=== PATIENT | male | born 1975 | race Caucasian/White ===

== ENCOUNTER 2018-06-23 21:57 | Emergency (ER) | payer OTHER ==
[2018-06-23 22:56] VITALS: BP 139/83; PULSE 75; TEMP 97.8; BMI 24.2
--- NOTE | 2018-06-23 23:54 | PDOC ---
History of Present Illness - General Chief Complaint: Edema Stated Complaint: LEFT LEG AND FOOT PAIN Time Seen by Provider: 06/23/18 23:20 History Source: Patient Exam Limitations: No Limitations - History of Present Illness Initial Comments: 06/23/18 23:50 42 yo M with hx of psoriasis (not on medications) presents to the emergency department with left ankle swelling and pain since 9pm. Per the patient, he states after standing at his job for 11 hours, he noticed swelling in his left ankle when arriving home. The pain is located in the medial malleolus on the inferior and posterior aspect that is 6/10 throbbing sensation without radiation. Had a previous episode approximately 1 year ago with resolution on its own. Denies trauma. Denies the following: fever, chills, nausea, vomiting, chest pain, SOB, recent travels, hx of DVT/PE, use of hormones, recent surgeries , recent immobilizations, abdominal pain, dysuria, hematuria, diarrhea, and hematochezia. Past History - Past Medical History Allergies/Adverse Reactions: Allergies Allergy/AdvReac Type Severity Reaction Status Date / Time No Known Allergies Allergy Verified 06/24/18 00:52 Home Medications: Ambulatory Orders NK [No Known Home Medication] 06/23/18 - Suicide/Smoking/Psychosocial Hx Smoking History: Never smoked Review of Systems - Review of Systems Able to Perform ROS?: Yes Is the patient limited French proficient: No Constitutional: No: Chills, Diaphoresis, Fever, Weakness HEENTM: No: Eye Pain, Recent change in vision, Ear Pain, Nose Pain, Throat Pain , Mouth Pain Respiratory: No: Cough, Shortness of Breath, Hemoptysis Cardiac (ROS): No: Chest Pain, Lightheadedness, Palpitations, Syncope, Chest Tightness ABD/GI: No: Constipated, Diarrhea, Difficulty Swallowing, Nausea, Poor Appetite , Poor Fluid Intake, Rectal Bleeding, Vomiting, Indigestion, Abdominal cramping , Tarry Stools : No: Burning, Dysuria, Hematuria, Urgency Musculoskeletal: Yes: Joint Swelling (ankle left). No: Back Pain, Neck Pain Integumentary: No: Bruising, Flushing, Lesions, Lumps, Rash Neurological: No: Headache, Numbness, Tingling, Tremors, Ataxia, Dizziness Psychiatric: No: Stressors Endocrine: No: Unexplained Weight Gain Hematologic/Lymphatic: No: Anemia *Physical Exam - Vital Signs Last Vital Signs Temp Pulse Resp BP Pulse Ox 97.8 F 75 19 139/83 97 06/23/18 22:53 06/23/18 22:53 06/23/18 22:53 06/23/18 22:53 06/23/18 22:53 - Physical Exam General Appearance: Yes: Nourished, Appropriately Dressed. No: Apparent Distress, Intoxicated HEENT: positive: EOMI, DEBORAH, Normal Voice, Symmetrical, Hearing Grossly Normal. negative: Pharynx Normal, Pale Conjunctivae, Scleral Icterus (R), Scleral Icterus (L), Muffled/Hoarse voice, Pharyngeal Erythema, Tonsillar Exudate, Tonsillar Erythema, Nasal Congestion, Sinus Tenderness, Excessive drooling Neck: positive: Tender. negative: Trachea midline, Lymphadenopathy (R), Lymphadenopathy (L), Tender lateral, Tender midline Respiratory/Chest: positive: Lungs Clear, Normal Breath Sounds. negative: Chest Tender, Respiratory Distress, Accessory Muscle Use, Crackles, Rales, Rhonchi, Stridor, Wheezing, Hyperresonant Cardiovascular: positive: Regular Rhythm, Regular Rate, S1, S2. negative: Systolic Murmur Gastrointestinal/Abdominal: positive: Normal Bowel Sounds, Flat, Soft. negative : Tender, Distended, Rebound Lymphatic: negative: Adenopathy Musculoskeletal: positive: Normal Inspection. negative: CVA Tenderness, Vertebral Tenderness Extremity: positive: Normal Capillary Refill, Normal Range of Motion, Tender ( medial malleolus left posterior and inferior ttp), Pedal Edema (left). 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 negative: EOM Palsy, Sensory Deficit Moderate Sedation - Procedure Monitoring Vital Signs: Procedure Monitoring Vital Signs Temperature 97.8 F 06/23/18 22:53 Pulse Rate 75 06/23/18 22:53 Respiratory Rate 19 06/23/18 22:53 Blood Pressure 139/83 06/23/18 22:53 O2 Sat by Pulse Oximetry (%) 97 06/23/18 22:53 Medical Decision Making - Medical Decision Making 42 yo M with hx of psoriasis (not on medications) presents to the emergency department with left ankle swelling and pain since 9pm. initial vitals Initial Vital Signs Temp Pulse Resp BP Pulse Ox 97.8 F 75 19 139/83 97 06/23/18 22:53 06/23/18 22:53 06/23/18 22:53 06/23/18 22:53 06/23/18 22:53 Work up: likely this is related to possible varicose veins due to presence of varicose veins on the legs bilaterally without signs of trauma (no ecchymosis along the malleolus). likely not fracture or dislocation. unlikely to be a dvt given no erythema, not warm to the touch, and no risk factors. will get xray to rule out fx and dislocation xray did not show fracture or dislocation. will discharge with vascular follow up Dispo: Discharge *DC/Admit/Observation/Transfer Diagnosis at time of Disposition: Ankle pain Qualifiers: Chronicity: unspecified Laterality: left Qualified Code(s): M25.572 - Pain in left ankle and joints of left foot - Discharge Dispostion Disposition: HOME Decision to Admit order: No - Referrals Referrals: Reg Campos MD [Staff Physician] - - Patient Instructions Printed Discharge Instructions: DI for Varicose Veins, DI for Ankle Pain Additional Instructions: you were seen for ankle pain. xray was negative for fractures and dislocations. please follow up with the vascular surgeon referred to you for follow up care and management. please return to the emergency department if you are unable to walk on your foot or have new concerning symptoms such as fevers/chills with increased leg pain and swelling, inability to move your foot, and progression of a rash from the foot up the leg. thank you. - Post Discharge Activity Forms/Work/School Notes: Back to Work
--- NOTE | 2018-06-24 00:03 | PDOC ---
Attending Attestation - HPI HPI: 06/24/18 00:05 The patient is a 42 year old male, with a significant PMH of psoriasis, who presents to the emergency department with 3 hours of left ankle pain and swelling. The patient states the left ankle pain is rated 6/10 in intensity. The patient states he works at a [employer] where he stands for approx 11 hours during the day. The patient states he noted the left ankle swelling and pain after arriving home from work. Denies any recent injuries or trauma. The patient states he had a similar episode of left ankle pain and swelling 1 year ago which resolved on its own. The patient denies chest pain, shortness of breath, headache and dizziness. Denies fever, chills, nausea, vomit, diarrhea and constipation. Denies dysuria, frequency, urgency and hematuria. Documentation prepared by Edvin Dubon, acting as medical sales consultant for Ibeth Luna MD. <Edvin Dubon - Last Filed: 06/24/18 00:05> - Resident Resident Name: Andrae Bowser - ED Attending Attestation I have performed the following: I have examined & evaluated the patient, The case was reviewed & discussed with the resident, I agree w/resident's findings & plan, Exceptions are as noted - Physicial Exam PE: GENERAL: Awake, alert, and fully oriented, in no acute distress HEAD: No signs of trauma EYES: PERRLA, EOMI, sclera anicteric, conjunctiva clear ENT: Auricles normal inspection, hearing grossly normal, nares patent, oropharynx clear without exudates. Moist mucosa NECK: Normal ROM, supple, no lymphadenopathy, JVD, or masses LUNGS: Breath sounds equal, clear to auscultation bilaterally. No wheezes, and no crackles HEART: Regular rate and rhythm, normal S1 and S2, no murmurs, rubs or gallops ABDOMEN: Soft, nontender, normoactive bowel sounds. No guarding, no rebound. No masses EXTREMITIES: Normal range of motion. +Purple discoloration just posterior to the medial malleolus. Multiple varicosities, worse to L leg, but present B/L. No clubbing or cyanosis. No cords, erythema, or tenderness NEUROLOGICAL: Cranial nerves II through XII grossly intact. Normal speech. Motor and sensation intact. SKIN: Warm, Dry, normal turgor, no rashes or lesions noted. - Medical Decision Making Pt with swelling to L ankle. No signs of cellulitis. The pain may be due to sprain/overuse injury, as he is on his feet all day at work, or this may be due to poor circulation, in light of varicose veins. Will obtain XR. If wnl, will DC home with vascular f/u. <Ibeth Luna - Last Filed: 06/24/18 00:19>
[2018-06-24] MEDS ORDERED: IBUPROFEN 600 MG TABLET (FP) PO ONE (00:09)
== END 2018-06-24 01:26 | disposition home or self-care (01) ==
LOC: JER 21:57
DX: M25.572 Pain in left ankle and joints of left foot (principal); X50.1XXA Overexertion from prolonged static or awkward postures, initial encounter; Y93.79 Activity, other specified sports and athletics; Y92.511 Restaurant or cafe as the place of occurrence of the external cause; Y99.0 Civilian activity done for income or pay
CPT/HCPCS: 73610-TC-LT-FY; 73630-TC-LT; 99281-25

== ENCOUNTER 2024-10-03 06:57 | Observation (INO) | payer OTHER ==
[2024-10-03] MEDS: cefOXitin SODIUM 2 GM VIAL (RESTRICTED TO ID) IVPB ONE
[2024-10-03 07:03] VITALS: BMI 28.2
[2024-10-03] MEDS ORDERED: ONDANSETRON 4 MG/2 ML VIAL ONE ×2 (07:39→14:06)
[2024-10-03] MEDS ORDERED: ACETAMINOPHEN INJECTION 100 ML ONE (07:39)
[2024-10-03] MEDS ORDERED: FAMOTIDINE 20 MG/50 ML IVPB 20 MG/50 ML MG IVPB ONE (07:39)
[2024-10-03 08:09] LABS: ABSOLUTE IMMATURE GRANULOCYTES 0.04 x10^3/uL (0.0-0.031); BASOPHILS # 0.04 x10^3/uL (0.01-0.08); EOSINOPHIL % 0.3 % (0.8-7.0); EOSINOPHILS # 0.03 x10^3/uL (0.04-0.54); EPI CELLS 5 /uL (0-25.1); HEMATOCRIT 46.6 % (40.1-51.0); HEMOGLOBIN 14.8 g/dL (13.7-17.5); HYALINE CASTS 0 /uL (0-3.1); MCHC 31.8 g/dl (32.3-36.5); MEAN CELL VOLUME 80.6 fl (79.0-92.2); MEAN PLT VOLUME 9.6 fl (9.4-12.4); MONOCYTE # 0.33 x10^3/uL (0.30-0.82); MONOCYTE % 2.8 % (5.3-12.2); PH,URINE 5.5 (5.0-8.0); PLATELET COUNT 463 x10^3/uL (163-337); RDW 14.8 % (12.1-15.9); URINE APPEARANCE CLEAR; URINE BACTERIA 6 /uL (0-1359); URINE BILIRUBIN NEGATIVE (NEGATIVE); URINE COLOR YELLOW; URINE GLUCOSE (UA) NEGATIVE (NEGATIVE); URINE KETONE NEGATIVE (NEGATIVE); URINE LEUK ESTERASE NEGATIVE (NEGATIVE); URINE NITRITE NEGATIVE (NEGATIVE); URINE PROTEIN TRACE (NEGATIVE); URINE RBC 29 /uL (0-23.9); URINE UROBILINOGEN 0.2 mg/dL (0.2-1.0); URINE WBC 4 /uL (0-25.8)
[2024-10-03] MEDS: SODIUM CHLORIDE 1,000 ML IV STA (08:10)
[2024-10-03] MEDS: ACETAMINOPHEN 1000 MG/100 ML BAG IVPB ONE (08:10)
[2024-10-03] MEDS: ONDANSETRON 4 MG/2 ML VIAL IVPUSH ONE (08:10)
[2024-10-03] MEDS: FAMOTIDINE 20 MG/50 ML IVPB 20 MG/50 ML MG IVPB ONE (08:10)
[2024-10-03 08:16] LABS: INR 1.05 (0.83-1.09); PROTHROMBIN TIME (PATIENT) 11.5 SEC (9.7-13.0)
[2024-10-03 08:19] LABS: ACTIVATED PTT 31.8 SECONDS (25.2-36.5)
[2024-10-03 08:32] LABS: POTASSIUM 4.8 mmol/L (3.5-5.1)
[2024-10-03 08:34] LABS: ALBUMIN 3.9 g/dl (3.4-5.0); BLOOD UREA NITROGEN 16.2 mg/dL (7-18); CALCIUM 8.9 mg/dL (8.5-10.1)
[2024-10-03 08:37] LABS: CREATININE 0.8 mg/dL (0.55-1.3)
[2024-10-03 08:39] LABS: BILIRUBIN,TOTAL 0.8 mg/dL (0.2-1)
[2024-10-03] MEDS ORDERED: KETOROLAC TROMETHAMINE 30 MG/1 ML VIAL ONE ×2 (09:22→14:06)
[2024-10-03] MEDS: KETOROLAC TROMETHAMINE 30 MG/1 ML VIAL IVPUSH ONE (09:26)
[2024-10-03] MEDS ORDERED: PIPERACILLIN/TAZOB 3.375 GM 3.375 GM/50 ML BAG IVPB ONE (09:31)
[2024-10-03] MEDS: PIPERACILLIN/TAZOB 3.375 GM 3.375 GM in DEXTROSE 5%-WATER - 50 ML IVPB ONE (09:41)
[2024-10-03] MEDS ORDERED: BUPIVACAINE HCL/PF 0.25% (2.5MG/ML) 10 ML VIAL ONE ×2 (13:20→13:23)
[2024-10-03] MEDS ORDERED: cefOXitin SODIUM 2 GM VIAL (RESTRICTED TO ID) IVPB ONE (13:23)
[2024-10-03] MEDS ORDERED: HEPARIN NA (PORCINE) 5,000 UNITS/ML 1ML VIAL ONE (13:23)
[2024-10-03] MEDS ORDERED: INDOCYANINE GREEN 25 MG/10 ML VIAL IVPUSH ONE (13:23)
[2024-10-03] MEDS ORDERED: MIDAZOLAM HCL 2 MG/2 ML SINGLE DOSE VIAL ONE (14:05)
[2024-10-03] MEDS ORDERED: PROPOFOL 20 ML ONE (14:05)
[2024-10-03] MEDS ORDERED: SUCCINYLCHOLINE CHLORIDE 200 MG/10 ML SYRINGE ONE (14:05)
[2024-10-03] MEDS ORDERED: LIDOCAINE HCL/PF 2% SDV 5ML VIAL ONE (14:06)
[2024-10-03] MEDS ORDERED: METOCLOPRAMIDE HCL INJECTION 10 MG/2 ML VIAL ONE (14:06)
[2024-10-03] MEDS ORDERED: DEXAMETHASONE SOD PHOSPHATE 4 MG/1 ML VIAL ONE (14:06)
[2024-10-03] MEDS: BUPIVACAINE HCL/PF 0.25% (2.5MG/ML) 10 ML VIAL IJ ONE ×2 (15:47)
[2024-10-03] MEDS ORDERED: PIPERACILLIN/TAZOBACTAM 3.375 GM VIAL IVPB ONE (16:04)
[2024-10-03] MEDS: PIPERACILLIN/TAZOBACTAM 3.375 GM VIAL IVPB ONE (16:07)
[2024-10-03] MEDS ORDERED: SUGAMMADEX SODIUM 200 MG/2 ML VIAL ONE (16:32)
[2024-10-03] MEDS ORDERED: oxyCODONE HCL 5 MG TABLET PO PRN (20:04)
[2024-10-03] MEDS: LACTATED RINGERS SOLUTION 1,000 ML IV SCH (21:53)
[2024-10-03] MEDS: DOCUSATE SODIUM 100 MG CAPSULE (FP) PO SCH (21:54)
[2024-10-04] MEDS: LACTATED RINGERS SOLUTION 1,000 ML IV SCH (00:45)
[2024-10-04] MEDS: PIPERACILLIN/TAZOB 3.375 GM 3.375 GM/50 ML BAG IVPB SCH (00:49)
[2024-10-04] MEDS: ACETAMINOPHEN 1000 MG/100 ML BAG IVPB SCH (00:49)
[2024-10-04 04:24] VITALS: RESP 18
[2024-10-04 09:45] LABS: ABSOLUTE IMMATURE GRANULOCYTES 0.04 x10^3/uL (0.0-0.031); BASOPHILS # 0.03 x10^3/uL (0.01-0.08); EOSINOPHIL % 1.1 % (0.8-7.0); EOSINOPHILS # 0.11 x10^3/uL (0.04-0.54); HEMATOCRIT 40.4 % (40.1-51.0); HEMOGLOBIN 12.7 g/dL (13.7-17.5); MCHC 31.4 g/dl (32.3-36.5); MEAN CELL VOLUME 79.8 fl (79.0-92.2); MEAN PLT VOLUME 9.8 fl (9.4-12.4); MONOCYTE # 0.93 x10^3/uL (0.30-0.82); MONOCYTE % 9.5 % (5.3-12.2); PLATELET COUNT 385 x10^3/uL (163-337); RDW 15.1 % (12.1-15.9)
[2024-10-04 10:08] LABS: POTASSIUM 3.9 mmol/L (3.5-5.1)
[2024-10-04 10:12] LABS: BLOOD UREA NITROGEN 10.7 mg/dL (7-18)
[2024-10-04 10:15] LABS: CREATININE 0.8 mg/dL (0.55-1.3); PHOSPHOROUS 2.9 mg/dL (2.5-4.9)
[2024-10-04 10:17] LABS: BILIRUBIN,TOTAL 1.1 mg/dL (0.2-1); TOT PROT 6.1 g/dl (6.4-8.2)
[2024-10-04 10:23] LABS: CALCIUM 8.4 mg/dL (8.5-10.1)
[2024-10-04] MEDS: ENOXAPARIN NA (PORCINE) 40 MG/0.4 ML DISP.SYRIN SQ SCH (10:31)
[2024-10-04] MEDS: oxyCODONE HCL 5 MG TABLET PO PRN (11:15)
[2024-10-04 11:37] VITALS: BP 122/81; PULSE 78; TEMP 98.1
== END 2024-10-04 13:39 | disposition home or self-care (01) ==
LOC: JER 06:57 → JASUSAT 09:22 → SUATTDRO 09:22 → J8W 10:26 → JASUSAT 10:26 → J8W 10-04 07:23
PROVIDERS: ADMIT Student in an Organized Health Care Education/Training Program; ATTEND Internal Medicine
PROC: 0FT44ZZ Resection of Gallbladder, Percutaneous Endoscopic Approach (ICD-10-PCS; principal; 2024-10-03 10:30)
PROC: 3E033NZ Introduction of Analgesics, Hypnotics, Sedatives into Peripheral Vein, Percutaneous Approach (ICD-10-PCS; 2024-10-04)
PROC: 3E033GC Introduction of Other Therapeutic Substance into Peripheral Vein, Percutaneous Approach (ICD-10-PCS; 2024-10-04)
PROC: 3E0333Z Introduction of Anti-inflammatory into Peripheral Vein, Percutaneous Approach (ICD-10-PCS; 2024-10-04)
PROC: 3E03329 Introduction of Other Anti-infective into Peripheral Vein, Percutaneous Approach (ICD-10-PCS; 2024-10-04)
DX: K81.0 Acute cholecystitis (principal); I10 Essential (primary) hypertension; K76.0 Fatty (change of) liver, not elsewhere classified
CPT/HCPCS: 36415; 76705-TC; 80053; 81003; 83690; 83735; 84100; 85025; 85610; 85730; 86850; 86900; 86901; 87086; 93005; 93010; 94010; 94760; 96361; 96365; 96367; 96375; 96376; 99285-25; G0378; J0131; J1644